=== PATIENT | male | born 1960 | race Caucasian/White ===

== ENCOUNTER 2025-04-18 18:39 | Emergency (ER) | payer BC ==
[~2025-04-18] VITALS: Ht 177.8 cm; Wt 99.8 kg
[2025-04-18 18:47] VITALS: BP 177/100
[2025-04-18] MEDS ORDERED: CETI-90 PO (19:20)
[2025-04-18] MEDS ORDERED: FLUT16SP16 BNOSTRILS (19:20)
[2025-04-18 19:34] VITALS: BP 177/100; TEMP 98; O2SAT 94
== END 2025-04-18 19:35 | disposition home or self-care (01) ==
LOC: ER 18:43
DX: J01.90 Acute sinusitis, unspecified (principal); R03.0 Elevated blood-pressure reading, without diagnosis of hypertension
CPT/HCPCS: A4606; A4663